=== PATIENT | male | born 1940 | race Caucasian/White ===

== ENCOUNTER → 2020-11-29 | Outpatient (REF) | payer MEDICARE, OTHER | LOC: M LAB REF 19:04 | PROVIDERS: ATTEND Physician Assistant | DX: C44.41 Basal cell carcinoma of skin of scalp and neck (principal) ==

== ENCOUNTER → 2021-01-19 | Outpatient (REF) | payer MEDICARE, OTHER ==
[2021-01-20 12:16] LABS: CALCIUM LEVEL 8.8 MG/DL (8.8-10.2); CREATININE FOR GFR 1.47 MG/DL (0.70-1.30); GLOMERULAR FILTRATION RATE 49.1 (>35); POTASSIUM SERUM 5.2 MEQ/L (3.5-5.1)
== END ==
LOC: M SFHCCLAY 13:46
PROVIDERS: ATTEND Family Medicine
DX: I11.9 Hypertensive heart disease without heart failure (principal)
CPT/HCPCS: 80048; G0463

== ENCOUNTER → 2021-09-09 | Outpatient (REF) | payer MEDICARE, OTHER ==
[2021-09-09 14:13] LABS: CALCIUM LEVEL 9.1 MG/DL (8.8-10.2); CHOLESTEROL RISK RATIO 3.051 (<5); CREATININE FOR GFR 1.51 MG/DL (0.70-1.30); GLOMERULAR FILTRATION RATE 47.6 (>35); POTASSIUM SERUM 4.9 MEQ/L (3.5-5.1)
== END ==
LOC: M SFHCCLAY 08:43
PROVIDERS: ATTEND Family Medicine
DX: I11.9 Hypertensive heart disease without heart failure (principal); E78.5 Hyperlipidemia, unspecified

== ENCOUNTER → 2021-12-14 | Outpatient (REF) | payer MEDICARE, OTHER | LOC: M SFHCDERM 17:29 | PROVIDERS: ATTEND Physician Assistant | DX: C44.602 Unspecified malignant neoplasm of skin of right upper limb, including shoulder (principal) ==

== ENCOUNTER → 2022-02-07 | Outpatient (REF) | payer MEDICARE, OTHER ==
[2022-02-07 18:13] LABS: CALCIUM LEVEL 9.1 MG/DL (8.8-10.2); CHOLESTEROL RISK RATIO 3.2 (<5); CREATININE FOR GFR 1.57 MG/DL (0.70-1.30); GLOMERULAR FILTRATION RATE 45.4 (>35)
== END ==
LOC: M SFHCCLAY 11:05
PROVIDERS: ATTEND Nurse Practitioner Family
DX: E78.5 Hyperlipidemia, unspecified (principal); I48.21 Permanent atrial fibrillation; J44.9 Chronic obstructive pulmonary disease, unspecified; Z85.828 Personal history of other malignant neoplasm of skin